=== PATIENT | male | born 1960 | race Caucasian/White ===

== ENCOUNTER → 2024-02-01 14:45 | Outpatient (REF) | payer OTHER, SELFPAY | LOC: HWRAD 14:45 | PROVIDERS: ATTENDING PHYSICIAN Nurse Practitioner Adult Health | DX: M51.16 Intervertebral disc disorders with radiculopathy, lumbar region (principal) | CPT/HCPCS: 72110 ==

== ENCOUNTER → 2024-05-02 15:46 | Outpatient (REF) | payer OTHER, SELFPAY | LOC: PAVMRI 15:46 | PROVIDERS: ATTENDING PHYSICIAN Nurse Practitioner Adult Health | DX: M48.062 Spinal stenosis, lumbar region with neurogenic claudication (principal) | CPT/HCPCS: 72148 ==

== ENCOUNTER 2025-09-22 11:40 | Emergency (ER) | payer OTHER, SELFPAY ==
[2025-09-22 11:48] VITALS: BP 152/97
[2025-09-22 12:58] VITALS: BMI 33.9
--- NOTE | 2025-09-22 14:44 | ED.GENMED ---
History of Present Illness
General
Chief Complaint: Back Pain
Source: patient
Exam Limitations: none
Time Seen by Provider: 09/22/25 13:42
History of Present Illness
History of Present Illness:
65-year-old male presents complaining of ongoing lower back pain that radiates from the lower back through the left buttock down the posterior left thigh with associated pain and numbness to the dorsum of the left foot. He denies any fevers or
bowel or bladder dysfunction. No known injury. He has been using Tylenol and naproxen. He is due to see a back pain specialist on November 02. No rash. States he keeps him up at night. No injury. He had x-rays of his back and his foot all of
which were negative
Past History
Past History
ED Past Medical History: Hypercholesterolemia and Other (diverticulitis)
ED Past Surgical History: None
Social History
Tobacco: Smoker
Alcohol: Daily
Drug: None
Personal:
Living: with family
Employment: Employed
Family History
Family History: Diabetes and Hypertension
Phy Exam
Physical Exam
Physical Exam:
General: Uncomfortable appearing male no acute respiratory distress
HEENT: Normal cephalic atraumatic musculoskeletal exam:
No reproducible tenderness over the midline lumbar spine. He is tender over the left upper buttock and left posterior thigh
Neurologic exam: Alert and oriented he is ambulatory good strength sensation to the upper and lower extremities. Bilateral patellar reflexes 2+. Positive straight leg raise left lower extremity
Vascular: 2+ DP pulse left foot skin is warm no rash
Course
Orders/Labs/Results
Orders:
Orders
09/22/25 14:43
Ketorolac [Toradol] 30 mg IM NOW STA
Vital Signs
Initial and Last Documented VS:
Initial Vital Signs
Temp Pulse Resp BP Pulse Ox
97.7 F 94 20 152/97 98
09/22/25 11:48 09/22/25 11:48 09/22/25 11:48 09/22/25 11:48 09/22/25 11:48
Last Documented Vital Signs
Temp Pulse Resp BP Pulse Ox
97.7 F 94 20 152/97 98
09/22/25 11:48 09/22/25 11:48 09/22/25 11:48 09/22/25 11:48 09/22/25 11:48
MDM/Problems Addressed
Differential Diagnosis Includes:
Patient with lower back pain that radiates down the left leg. No red flags to suggest cauda equina. No fever to suggest infectious source. I suspect radiculopathy. Will give Toradol injection here and send prescription for prednisone and
gabapentin. He will follow-up with back pain especially
*Pulse Oximetry
SaO2: 98
Oxygen Mode of Delivery: Room air
Patient hypoxic: no
*Critical Care Note
Total Time (30-74mins, 75-104mins- exclusive of procedures): Not Applicable
ED Attending Note
-
Portions of this chart may have been created with voice recognition software.� Occasional wrong word or��sound alike� substitutions may have occurred due to the inherent limitations of voice recognition software.
Discharge Plan
Departure
Patient Disposition: Home (Routine Discharge)
Date of Disposition: 09/22/25
Time of Disposition: 14:46
Patient with high blood pressure during this ER visit?: No
Discharge Problem:
Acute left lumbar radiculopathy
Instructions: Radiculopathy (DC)
Prescriptions:
New
gabapentin 300 mg capsule
300 mg PO BID Qty: 14 0RF
prednisone 10 mg Tablet
See Rx Instructions .ROUTE .COMPLEX Qty: 45 0RF
Rx Instructions:
Take By Mouth:
50 mg daily x3 days, 40 mg daily x3 days,
30 mg daily x3 days, 20 mg daily x3 days,
10 mg daily x3 days
No Action
sucralfate 1 GRAM tablet
1 g PO ACHS Qty: 10 0RF
Referrals:
Deon Jain MD [Active, Anesthesiology]
Cali Curry DO [Family Provider, Family Practice]
Activity Restrictions/Additional Instructions:
You may continue Tylenol if needed. Use prednisone as directed. Use gabapentin as directed. Follow-up with back pain specialist. Return if worse otherwise
Interventions
Interventions:
*Risk Screen - Suicide Last Done: 09/22/25 11:48
*General Assessment Last Done: 09/22/25 11:48
*Neglect/Abuse Screening Last Done: 09/22/25 11:48
*ED COVID-19 Vaccine History Last Done: 09/22/25 12:58
*ED Influenza Vaccine History Last Done: 09/22/25 12:58
[facility] Fall Risk Assessment Tool Last Done: 09/22/25 12:58
ED-Musculoskeletal Assessment Last Done: 09/22/25 12:58
Discharge Date and Time
Print Language: PAKIST[place]
[2025-09-22] MEDS: TORADOL 30 MG IM (14:55)
[2025-09-22 15:05] VITALS: BP 149/99
== END 2025-09-22 15:06 | disposition home or self-care (01) ==
LOC: EMR 11:40
PROVIDERS: EMERGENCY PHYSICIAN Emergency Medicine; FAMILY PHYSICIAN Family Medicine
DX: M54.16 Radiculopathy, lumbar region (principal); E78.00 Pure hypercholesterolemia, unspecified; F17.200 Nicotine dependence, unspecified, uncomplicated
CPT/HCPCS: 96372; 99284